=== PATIENT | female | born 1950 | race Caucasian/White ===

== ENCOUNTER 2017-06-17 16:18 | Emergency (ER) | payer MEDICARE, BC ==
[2017-06-17 17:18] VITALS: BP 146/75
--- NOTE | 2017-06-17 17:39 | EDM.PDOC ---
ED HPI GENERAL MEDICAL PROBLEM - General Chief Complaint: Upper Extremity Injury/Pain Stated Complaint: FELL ON WRIST, [id number] Time Seen by Provider: 06/17/17 17:35 Source of Information: Reports: Patient History Limitations: Reports: No Limitations - History of Present Illness INITIAL COMMENTS - FREE TEXT/NARRATIVE: 67 yo female presents with fall and left wrist pain. States that she was walking carrying a bucket and tripped, falling down and embankment onto the ground. c/po left hip and wrist almaraz. Denies LOC, neck or back pain. Onset: Today, Sudden Location: Reports: Upper Extremity, Left Quality: Reports: Throbbing Severity: Moderate Improves with: Reports: Immobilization Worsens with: Reports: Movement Context: Reports: Activity Associated Symptoms: Reports: No Other Symptoms Left Wrist Pain Score (Numeric/FACES): 8 - Related Data Allergies Allergy/AdvReac Type Severity Reaction Status Date / Time No Known Allergies Allergy Verified 06/17/17 17:18 Home Meds: Home Meds Lactulose [Chronulac] 30 ml PO DAILY 05/11/14 [History] Biotin [Geovanny Biotin] 1 tab PO DAILY 09/04/15 [History] Calcium Carbonate/Vitamin D3 [Calcium 600 + Vit D 400 Tablet] 1 tab PO DAILY 08/11 [History] Flaxseed Oil 1 tab PO DAILY 09/04/15 [History] L.acidoph,Paracasei, B.lactis [Probiotic] 1 tab PO DAILY 09/04/15 [History] Multivitamin with Minerals [Multiple Vitamin] 1 tab PO DAILY 09/04/15 [History] Psyllium with Sucrose [Metamucil] 1 packet PO DAILY 09/04/15 [History] Past Medical History - Past Health History Medical/Surgical History: Denies Medical/Surgical History Respiratory History: Reports: Asthma Other Gastrointestinal History: diverticulosis Social & Family History - Tobacco Use Smoking Status *Q: Never Smoker Second Hand Smoke Exposure: No - Alcohol Use Days Per Week of Alcohol Use: 0 - Recreational Drug Use Recreational Drug Use: No - Living Situation & Occupation Living situation: Reports: , with Family Review of Systems - Review of Systems Review Of Systems: ROS reveals no pertinent complaints other than HPI. ED EXAM, GENERAL - Physical Exam Exam: See Below Exam Limited By: No Limitations General Appearance: Alert, WD/WN, No Apparent Distress Respiratory/Chest: No Respiratory Distress, Lungs Clear, Normal Breath Sounds, No Accessory Muscle Use, Chest Non-Tender Cardiovascular: Normal Peripheral Pulses, Regular Rate, Rhythm, No Edema, No Gallop, No JVD, No Murmur, No Rub Extremities: Normal Inspection, No Pedal Edema, Normal Capillary Refill, Arm Pain, Leg Pain (left thigh pain), Limited Range of Motion Neurological: Alert, Oriented, Normal Cognition, Normal Gait Skin Exam: Warm, Dry, Intact, Ecchymosis (left lateral thigh and left wrist) ED TRAUMA EXTREMITY PROCEDURES - Splinting Left Upper Extremity Splint Site: left wrist Pre-Procedure NV Status: Normal Post-Procedure NV Status: Normal Splint Material: Fiberglass Splint Design: Sugar Tong Applied & Form Fitted By: Provider Provider Post-Splint Application NV Check: NV Status Normal, Good Position Complications: No Course - Vital Signs Last Recorded V/S: Last Vital Signs Temp 98 F 06/17/17 16:30 Pulse 73 06/17/17 16:30 Resp 18 06/17/17 16:30 BP 146/75 H 06/17/17 16:30 Pulse Ox 100 06/17/17 16:30 - Orders/Labs/Meds Orders: Active Orders 24 hr Category Date Time Status Wrist Comp Min 3V Lt [CR] Urgent Exams 06/17/17 19:11 Ordered Meds: Medications Discontinued Medications Generic Name Dose Route Start Last Admin Trade Name Keyshawn PRN Reason Stop Dose Admin Ondansetron HCl 4 mg 06/17/17 18:31 06/17/17 18:46 Zofran Odt PO 06/17/17 18:32 4 mg ONETIME ONE Administration Oxycodone/Acetaminophen 1 tab 06/17/17 18:31 06/17/17 18:44 Percocet 325-5 Mg PO 06/17/17 18:32 1 tab ONETIME ONE Administration - Re-Assessments/Exams Free Text/Narrative Re-Assessment/Exam: 06/17/17 18:[address] Liao, [facility] who states to place patient in sugar tong splint and have her follow up next week. Will place in splint and dc home woth pain medication. Departure - Departure Time of Disposition: 19:39 Disposition: Home, Self-Care 01 Condition: Good Clinical Impression: Fracture of radius Qualifiers: Encounter type: initial encounter Radius location: distal Fracture type: closed Fracture morphology: other intra-articular Laterality: left Qualified Code(s): S52.572A - Other intraarticular fracture of lower end of left radius, initial encounter for closed fracture - Discharge Information Instructions: Wrist Fracture Treated With Immobilization, [id number] Referrals: Doc Frank MD [Primary Care Provider] - Forms: ED Department Discharge Additional Instructions: Make sure to call [facility] at [phone] for follow up of the fractured wrist. Make the appointment for next week.as soon as possible. Keep the splint clean and dry. return for any numbness or decreased sensation or worsening symptoms. take pain medication as needed. - My Orders Last 24 Hours: My Active Orders 06/17/17 19:11 Wrist Comp Min 3V Lt [CR] Urgent - Assessment/Plan Last 24 Hours: My Active Orders 06/17/17 19:11 Wrist Comp Min 3V Lt [CR] Urgent
[2017-06-17] MEDS ORDERED: Acetaminophen/oxyCODONE 325-5 MG Tab PO ONE ×2 (18:31→19:51)
[2017-06-17] MEDS ORDERED: Ondansetron 4 MG Tab.DIS PO ONE (18:31)
[2017-06-17] MEDS ORDERED: Acetaminophen/oxyCODONE 325-5 MG Tab ONE (19:51)
== END 2017-06-17 19:56 | disposition home or self-care (01) ==
LOC: DL.ED 16:18
DX: S52.572A Other intraarticular fracture of lower end of left radius, initial encounter for closed fracture (principal); J45.909 Unspecified asthma, uncomplicated; Z79.899 Other long term (current) drug therapy; W01.0XXA Fall on same level from slipping, tripping and stumbling without subsequent striking against object, initial encounter
CPT/HCPCS: 29125; 73090; 73110; 99284; A9270; 99283

== ENCOUNTER 2021-07-25 12:18 | Emergency (ER) | payer MEDICARE, BC ==
[2021-07-25 14:00] VITALS: BP 145/66; PULSE 65
[2021-07-25 14:55] LABS: ANION GAP 13.4 mEq/L (7-13); CHLORIDE,CL 99 mmol/L (98-107); SODIUM,NA 138 mmol/L (136-145)
--- NOTE | 2021-07-25 15:29 | CT ---
PROCEDURE INFORMATION: Exam: CT Head Without Contrast Exam date and time: 07/25/2021 2:32 PM Age: 71 years old Clinical indication: Other: Vision in left eye change; Additional info: Left eye vision change and pain TECHNIQUE: Imaging protocol: Computed tomography of the head without contrast. Total images: 147 Radiation optimization: All CT scans at this facility use at least one of these dose optimization techniques: automated exposure control; mA and/or kV adjustment per patient size (includes targeted exams where dose is matched to clinical indication); or iterative reconstruction. COMPARISON: No relevant prior studies available. FINDINGS: Brain: Deep white matter hypodensity compatible with chronic small vessel ischemic change. Cerebral ventricles: No ventriculomegaly. Paranasal sinuses: Visualized sinuses are unremarkable. No fluid levels. Mastoid air cells: Visualized mastoid air cells are well aerated. Bones/joints: Unremarkable. No acute fracture. Soft tissues: Unremarkable. IMPRESSION: No acute intracranial process.
--- NOTE | 2021-07-25 17:19 | EDM.PDOC ---
Scribed by Ivania Martinez 07/25/21 1531 for Laurita Ashley NP ED HPI GENERAL MEDICAL PROBLEM - General Chief Complaint: ENT Problem Stated Complaint: LIMITED VISION LEFT EYE Time Seen by Provider: 07/25/21 14:03 Source of Information: Reports: Patient, RN, RN Notes Reviewed History Limitations: Reports: No Limitations - History of Present Illness INITIAL COMMENTS - FREE TEXT/NARRATIVE: Patient is a 71-year-old female who presents to ER with complaint of blurred vision to the left eye. States Monday the left eye began getting more blurry. Today very blurry (narrow slanted window to see". Aching pain 3/10. Has been working with opthamology x1 month ago--double vision seen by Dr. Cannon. No findings, Ordered a special lens. Denies getting anything in the eye. States it is not the eyeball itself does not hurt, the "general ocular area". Denies headache. History asthma and sinus congestion. Onset: Gradual Duration: Constant Location: Reports: Other (left eye) Quality: Reports: Ache Severity: Moderate Improves with: Reports: None Worsens with: Reports: None Associated Symptoms: Reports: No Other Symptoms Left Eye Pain Score (Numeric/FACES): 3 - Related Data Allergies Allergy/AdvReac Type Severity Reaction Status Date / Time No Known Allergies Allergy Verified 07/25/21 12:42 Home Meds: Home Meds Lactulose [Chronulac] 30 ml PO DAILY 05/11/14 [History] Biotin [Geovanny Biotin] 1 tab PO DAILY 09/04/15 [History] Calcium Carbonate/Vitamin D3 [Calcium 600 + Vit D 400 Tablet] 1 tab PO DAILY 09/04/15 [History] L.acidoph,Paracasei, B.lactis [Probiotic] 1 tab PO DAILY 09/04/15 [History] Multivitamin with Minerals [Multiple Vitamin] 1 tab PO DAILY 09/04/15 [History] Psyllium with Sucrose [Metamucil] 1 packet PO DAILY 09/04/15 [History] flaxseed oiL [Flaxseed Oil] 1 tab PO DAILY 09/04/15 [History] Celecoxib 200 mg PO ASDIRECTED 07/25/21 [History] Ezetimibe 10 mg PO ASDIRECTED 07/25/21 [History] Fluticasone/Vilanterol [Breo Ellipta 200-25 MCG Inhalation Kit] 1 sprays BUCCAL ASDIRECTED 07/25/21 [History] Montelukast [Singulair] 10 mg PO DAILY 07/25/21 [History] Past Medical History - Past Health History Medical/Surgical History: Denies Medical/Surgical History Respiratory History: Reports: Asthma Other Gastrointestinal History: diverticulosis Social & Family History - Tobacco Use Tobacco Use Status *Q: Never Tobacco User - Caffeine Use Caffeine Use: Reports: Coffee - Recreational Drug Use Recreational Drug Use: No - Living Situation & Occupation Living situation: Reports: , with Family ED ROS ENT - Review of Systems Review Of Systems: Comprehensive ROS is negative, except as noted in HPI. ED EXAM, ENT - Physical Exam Exam: See Below Exam Limited By: No Limitations General Appearance: Alert, WD/WN, No Apparent Distress Eye Exam: Bilateral Eye: Other (right 2030. Left 0 vision. ) Ears: Normal External Exam, Normal Canal, Hearing Grossly Normal, Normal TMs Nose: Normal Inspection, Normal Mucousa, No Blood Mouth/Throat: Normal Inspection, Normal Gums, Normal Lips, Normal Oropharynx, Normal Teeth Head: Atraumatic, Normocephalic Neck: Normal Inspection, Supple, Non-Tender, Full Range of Motion Respiratory/Chest: No Respiratory Distress, Lungs Clear, Normal Breath Sounds, No Accessory Muscle Use, Chest Non-Tender Cardiovascular: Normal Peripheral Pulses, Regular Rate, Rhythm, No Edema, No Gallop, No JVD, No Murmur, No Rub GI/Abdominal: Normal Bowel Sounds, Soft, Non-Tender, No Organomegaly, No Distention, No Abnormal Bruit, No Mass (Female) Exam: Deferred Rectal (Female) Exam: Deferred Back: Normal Inspection, Full Range of Motion Extremities: Normal Inspection, Normal Range of Motion, Non-Tender, No Pedal Edema, Normal Capillary Refill Neurological: Alert, Oriented, CN II-XII Intact, Normal Cognition, Normal Gait, Normal Reflexes, No Motor/Sensory Deficits Psychiatric: Normal Affect, Normal Mood Skin: Warm, Dry, Intact, Normal Color, No Rash Lymphatic: No Adenopathy Course - Vital Signs Last Recorded V/S: Last Vital Signs Temp 96.1 F L 07/25/21 13:59 Pulse 65 07/25/21 13:59 Resp 20 07/25/21 13:59 BP 145/66 H 07/25/21 13:59 Pulse Ox 99 07/25/21 13:59 - Orders/Labs/Meds Labs: Laboratory Tests 07/25/21 07/25/21 07/25/21 Range/Units 14:26 14:26 14:26 WBC 4.9 L (5.0-10.0) 10^3/uL RBC 3.86 L (4.2-5.4) 10^6/uL Hgb 12.4 (12.0-16.0) g/dL Hct 37.9 (37.0-47.0) % MCV 98.2 D (80-100) fL MCH 32.1 (27.0-34.0) pg MCHC 32.7 L (33.0-35.0) g/dL Plt Count 202 (150-450) 10^3/uL Neut % (Auto) 57.8 (42.2-75.2) % Lymph % (Auto) 29.2 (20.5-50.1) % Trimble % (Auto) 10.8 H (2-8) % Eos % (Auto) 1.6 (1.0-3.0) % Baso % (Auto) 0.6 (0.0-1.0) % ESR 34 H (0-20) mm/hr Sodium 138 (136-145) mmol/L Potassium 4.4 (3.5-5.1) mmol/L Chloride 99 (98-107) mmol/L Carbon Dioxide 30 (21-32) mmol/L Anion Gap 13.4 H (7-13) mEq/L BUN 17 (7-18) mg/dL Creatinine 0.75 (0.55-1.02) mg/dL Est Cr Clr Drug Dosing 72.24 mL/min Estimated GFR (MDRD) > 60 BUN/Creatinine Ratio 22.7 (No establ ref range) Glucose 92 (70-99) mg/dL Calcium 9.0 (8.5-10.1) mg/dL Total Bilirubin 0.3 (0.2-1.0) mg/dL AST 25 (15-37) U/L ALT 34 (14-59) U/L Alkaline Phosphatase 106 (46-116) U/L C-Reactive Protein (0.0-0.9) mg/dL Total Protein 7.6 (6.4-8.2) g/dL Albumin 3.9 (3.4-5.0) g/dL Globulin 3.7 Albumin/Globulin Ratio 1.1 07/25/21 Range/Units 14:26 WBC (5.0-10.0) 10^3/uL RBC (4.2-5.4) 10^6/uL Hgb (12.0-16.0) g/dL Hct (37.0-47.0) % MCV (80-100) fL MCH (27.0-34.0) pg MCHC (33.0-35.0) g/dL Plt Count (150-450) 10^3/uL Neut % (Auto) (42.2-75.2) % Lymph % (Auto) (20.5-50.1) % Trimble % (Auto) (2-8) % Eos % (Auto) (1.0-3.0) % Baso % (Auto) (0.0-1.0) % ESR (0-20) mm/hr Sodium (136-145) mmol/L Potassium (3.5-5.1) mmol/L Chloride (98-107) mmol/L Carbon Dioxide (21-32) mmol/L Anion Gap (7-13) mEq/L BUN (7-18) mg/dL Creatinine (0.55-1.02) mg/dL Est Cr Clr Drug Dosing mL/min Estimated GFR (MDRD) BUN/Creatinine Ratio (No establ ref range) Glucose (70-99) mg/dL Calcium (8.5-10.1) mg/dL Total Bilirubin (0.2-1.0) mg/dL AST (15-37) U/L ALT (14-59) U/L Alkaline Phosphatase (46-116) U/L C-Reactive Protein < 0.2 (0.0-0.9) mg/dL Total Protein (6.4-8.2) g/dL Albumin (3.4-5.0) g/dL Globulin Albumin/Globulin Ratio - Radiology Interpretation Free Text/Narrative:: Head CT wo contrast: Name: TIMI SOTO Age: 71Years F Date: 07/25/2021 SSN: -- : [id number] Study: CT HEAD WO CONT Requesting Physician: Laurita Ashley Images: 147 Addl Studies: Provided Clinical History: left eye vision change and pain Contrast: Without Contrast Medium: Contrast Amount: Contrast Method: PROCEDURE INFORMATION: Exam: CT Head Without Contrast Exam date and time: 07/25/2021 2:32 PM Age: 71 years old Clinical indication: Other: Vision in left eye change; Additional info: Left eye vision change and pain TECHNIQUE: Imaging protocol: Computed tomography of the head without contrast. Total images: 147 Radiation optimization: All CT scans at this facility use at least one of these dose optimization techniques: automated exposure control; mA and/or kV adjustment per patient size (includes targeted exams where dose is matched to clinical indication); or iterative reconstruction. COMPARISON: No relevant prior studies available. FINDINGS: Brain: Deep white matter hypodensity compatible with chronic small vessel ischemic change. Cerebral ventricles: No ventriculomegaly. Paranasal sinuses: Visualized sinuses are unremarkable. No fluid levels. Mastoid air cells: Visualized mastoid air cells are well aerated. Bones/joints: Unremarkable. No acute fracture. Soft tissues: Unremarkable. IMPRESSION: No acute intracranial process. Thank you for allowing us to participate in the care of your patient. Dictated and Authenticated by: Favian Rodrigues MD 07/25/2021 3:28 PM Central Time ([place] & [place]) See rad report - Re-Assessments/Exams Free Text/Narrative Re-Assessment/Exam: 07/25/21 16:08 Discussed patient case with Dr. Simms, Opthamologist at [place], who suggested the patient have a CRP and Sed rate checked and be suspicious for Giant Cell Arteritis. Patient can then be treated with steroids if these lab values are elevated and to see Dr. Cannon in [place] or Dr. Simms himself in [place] tomorrow morning. Dr Simms was informed of the symptoms the patient was having, he did not feel this was suggestive of a retinal detachment or tumor. 07/25/21 16:57 ESR normal for calculated ESR for age: Age + 10 / 2 71+10 = 83/2 = 41.5 At this calculated normal, patient ESR is normal. 07/25/21 17:07 07/25/21 17:18 All labs and diagnostics discussed with patient. Patient states understanding that she will need to follow up with Dr. Cannon in the morning. Departure - Departure Time of Disposition: 17:19 Disposition: Home, Self-Care 01 Condition: Fair Clinical Impression: Blurred vision, left eye, Left eye pain - Discharge Information *PRESCRIPTION DRUG MONITORING PROGRAM REVIEWED*: No *COPY OF PRESCRIPTION DRUG MONITORING REPORT IN PATIENT FLASH: No Instructions: Blurred Vision, Adult Forms: ED Department Discharge Additional Instructions: Follow up with Dr. Cannon immediately in the morning Let her know that I have discussed your case with Dr. Simms as well Return to the ER with any worsening of symptoms Sepsis Event Note (ED) - Focused Exam Vital Signs: Vital Signs Temp Pulse Resp BP Pulse Ox 07/25/21 13:59 96.1 F L 65 20 145/66 H 99 07/25/21 12:34 97.7 F 83 14 154/81 H 99 I have read and agree with the documentation that has been completed regarding this visit. By signing this record, I attest that the documentation was completed in my physical presence and is an accurate record of the encounter.
[2021-07-25] MEDS ORDERED: predniSONE 20 MG Tab PO ONE (18:51)
== END 2021-07-25 17:32 | disposition home or self-care (01) ==
LOC: DL.ED 12:18
DX: H53.8 Other visual disturbances (principal)
CPT/HCPCS: 36415; 70450; 80053; 85025; 85651; 86140; 99284; J7512